=== PATIENT | female | born 1975 | race Caucasian/White ===

== ENCOUNTER 2021-03-27 19:32 | Emergency (ER) | payer SELFPAY ==
[~2021-03-27] VITALS: Ht 165.1 cm; Wt 84.1 kg
[~2021-03-27 19:32] MED LIST: AMIT25TA9 PO; IBUP-2071 PO; LISI-894 PO; METF-960 PO; PRAV40TA4 PO
[2021-03-27 20:10] LABS: BASOPHILS % (AUTO) 0.7 % (0.0-2.0); HEMATOCRIT 38.8 % (36-46); HEMOGLOBIN 12.5 g/dL (12.0-16.0); MEAN CORPUSCULAR HGB CONC 32.3 G/dL (31.0-37.0); MEAN CORPUSCULAR VOLUME 87 fL (80-100); MONOCYTES % (AUTO) 7.1 % (2.0-9.0); NEUTROPHILS # (AUTO) 9.4 K/uL (1.8-7.7); NEUTROPHILS % (AUTO) 68.2 % (40.0-70.0); PLATELET COUNT (AUTO) 305 K/uL (150-450); RED BLOOD CELL COUNT(AUTO) 4.48 MIL/uL (4.00-5.20); RED CELL DISTRIBUTION WIDTH 14.2 % (11.5-14.5)
[2021-03-27 20:20] LABS: ANION GAP 6 mmol/L (8-16); CALCIUM, TOTAL 8.5 mg/dL (8.8-10.5); CARBON DIOXIDE 30 mmol/L (22-29); CHLORIDE 102 mmol/L (98-107); CREATININE 0.78 mg/dL (0.60-1.30); GLOMERULAR FILTR. RATE CALC > 60 mL/min (>60); GLUCOSE,RANDOM 123 mg/dL (70-110); POTASSIUM 3.8 mmol/L (3.5-5.1); SODIUM SERUM 138 mmol/L (136-145); UREA NITROGEN, BLOOD 11 mg/dL (7-18)
[2021-03-27 20:45] LABS: ALANINE AMINOTRANSFERASE 29 U/L (12-78); ALBUMIN 3.5 g/dL (3.4-5.0); ALKALINE PHOSPHATASE 80 U/L (46-116); ASPARTATE AMINOTRANSFERASE 15 U/L (15-37); BILIRUBIN,TOTAL 0.2 mg/dL (0.1-1.0); CREATINE KINASE, TOTAL ONLY 188 U/L (26-192); LIPASE 128 U/L (73-393); TOTAL PROTEIN, SERUM 7.6 g/dL (6.4-8.2)
[2021-03-27 20:46] LABS: B-TYPE NATRIURETIC PEPTIDE 15 pg/mL (0-100)
[2021-03-27] MEDS ORDERED: IBUPROFEN 600 MG TABLET PO ONE (23:00)
[2021-03-27 23:08] VITALS: BP 141/75
== END 2021-03-28 01:21 | disposition home or self-care (01) ==
LOC: EMS 19:34
DX: R07.89 Other chest pain (principal); G47.00 Insomnia, unspecified; E11.9 Type 2 diabetes mellitus without complications; F32.9 Major depressive disorder, single episode, unspecified; I10 Essential (primary) hypertension; Z79.899 Other long term (current) drug therapy; Z79.84 Long term (current) use of oral hypoglycemic drugs
CPT/HCPCS: 71045; 80053; 82550; 82962; 83690; 83735; 83880; 84484; 85025; 93005; 99285